=== PATIENT | male | born 1965 ===

== ENCOUNTER 2016-08-05 18:13 | Emergency (ER) | payer MEDICAID ==
[2016-08-05 18:29] VITALS: BMI 25.1
--- NOTE | 2016-08-05 19:25 | C.PDOC ---
History Of Present Illness 51 y/o male presents to ED with complaint of acute urinary retention, last voided early this morning. Patient also reports sharp and cramping abdominal pain. Denies fever, chills, nausea, vomiting, or other associated symptoms. Time Seen by Provider: 08/05/16 19:25 Chief Complaint (Nursing): Male Genitourinary History Per: Patient History/Exam Limitations: no limitations Onset/Duration Of Symptoms: Hrs Current Symptoms Are (Timing): Still Present Pain Scale Rating Of: 4 Quality Of Discomfort: Sharp, Cramping Associated Symptoms: Urinary Symptoms (retention). denies: Fever, Chills, Nausea, Vomiting, Diarrhea, Back Pain Recent travel outside of the [place]: No Past Medical History Reviewed: Historical Data, Nursing Documentation, Vital Signs Vital Signs: Last Vital Signs Temp 98.5 F 08/05/16 18:29 Pulse 89 08/05/16 18:29 Resp 18 08/05/16 18:29 BP 149/77 08/05/16 18:29 Pulse Ox 98 08/05/16 19:40 - Medical History PMH: Benign Prostatic Hyperplasia Family History: States: Unknown Family Hx - Social History Hx Alcohol Use: No Hx Substance Use: No - Immunization History Hx Tetanus Toxoid Vaccination: Yes Hx Influenza Vaccination: No Hx Pneumococcal Vaccination: No Review Of Systems Constitutional: Negative for: Fever, Chills Gastrointestinal: Positive for: Abdominal Pain. Negative for: Nausea, Vomiting , Diarrhea Genitourinary: Positive for: Other (urinary retention ). Negative for: Hematuria Musculoskeletal: Negative for: Back Pain Skin: Negative for: Rash Physical Exam - Physical Exam Appears: Non-toxic, Other (in painful discomfort) Skin: Warm, Dry Head: Normacephalic Chest: Symmetrical Cardiovascular: Rhythm Regular Respiratory: No Rales, No Rhonchi, No Wheezing Gastrointestinal/Abdominal: Soft, No Guarding, No Rebound, Other (distended bladder palpated) Extremity: Normal ROM, Capillary Refill (< 2 sec. ) Neurological/Psych: Oriented x3, Normal Speech, Normal Cognition ED Course And Treatment O2 Sat by Pulse Oximetry: 98 (ra) Pulse Ox Interpretation: Normal Progress Note: 18 burkinan Albright placed without difficulty. 600 cc urine drained. Patient tolerated procedure well. Reports improvement of pain on re-assessment. UA and urine culture ordered. Reevaluation Time: 20:11 Reassessment Condition: Improved Disposition Counseled Patient/Family Regarding: Studies Performed, Diagnosis, Need For Followup - Disposition Disposition: HOME/ ROUTINE Disposition Time: 19:25 Condition: FAIR Additional Instructions: do follow up with your urologist Instructions: Urinary Retention in Men (ED), Urinary Leg Bag (GEN), Albright Catheter Placement and Care (ED) - Clinical Impression Clinical Impression: Acute urinary retention - Scribe Statement The provider has reviewed the documentation as recorded by the Alicja Barajas Provider Scribe Attestation: All medical record entries made by the Alicja were at my direction and personally dictated by me. I have reviewed the chart and agree that the record accurately reflects my personal performance of the history, physical exam, medical decision making, and the department course for this patient. I have also personally directed, reviewed, and agree with the discharge instructions and disposition.
[2016-08-05 20:31] VITALS: BP 160/61; PULSE 69; RESP 16; TEMP 98.3; O2SAT 97
[2016-08-05 20:46] LABS: RBC URINE 479 /hpf (0-3); URINE BACTERIA MOD (<OCC); URINE BILIRUBIN NEGATIVE (NEGATIVE); URINE BLOOD 3+ (NEGATIVE); URINE COLOR Yellow (YELLOW); URINE GLUCOSE (UA) NORMAL (Normal); URINE KETONE 1+ mg/dL (NEGATIVE); URINE LEUKOCYTE ESTERASE 3+ Leu/uL (Negative); URINE PROTEIN 2+ mg/dL (NEGATIVE); URINE UROBILINOGEN NORMAL mg/dL (0.2-1.0); WBC CLUMPS MANY /hpf; WBC URINE 574 /hpf (0-5)
== END 2016-08-05 20:44 | disposition home or self-care (01) ==
LOC: C.ER 18:13 → MERGE 18:13 → C.ER 20:44
DX: R33.9 Retention of urine, unspecified (principal)